=== PATIENT | male | born 1960 | race African-American/Black ===

== ENCOUNTER 2024-03-12 09:24 | Outpatient (AMB) | payer BC, SELFPAY ==
--- NOTE | 2024-03-12 09:24 | MHC.OFFVIS ---
Vital Signs 03/12/24 09:27 Height 5 ft 6 in Weight 213 lb BMI 34.4 BP 129/84 Blood Pressure Location Rt brachial Position Sitting Pulse 94 Pulse Source Pulse Oximeter Pulse Oximetry (%) 98 Oxygen Delivery Method Room Air Intake Visit Reasons: Hip Pain Intake Note: Pain today 5/10 Allergies No Known Allergies Allergy (Verified 03/12/24 07:57) HPI HPI Hip Pain: Details: Patient is a 63 years old male with prior history of chronic back pain, cervical disc disorder with radiculopathy s/p ACDF (03/2023 at [facility]), h/o abdominal hernia repair (2008), knee pain, morbid obesity, presents today with left hip. Denies any recent trauma, injury or falls. 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 Patient has history of left sciatica in the past and reports his left lower leg with numbness. He also reports right knee, left ankle and low back pain which he attributes to heavy manual work. Reports previous cervical spine surgery and back injections at [facility]. Patient reports he recently completed hip and knee xrays at [facility] [place]. No imaging is available for review today. Pain affects his daily activities and functioning, work, sleep, mobility and social interactions. Denies any fever, chills, abdominal or groin, bladder or bowel dysfunction or saddle anesthesia. Reports chronic left lower leg weakness. Location: Left hip, left ankle, right knee, lower back Duration: Chronic pain >1 year Characteristics of symptom or complaint: Aching, throbbing, burning, hurting, sore, heavy, dull, radiating Aggravating or associated factors: Walking, weight bearing, climbing stairs, cold weather Relieving factors: Bending, Tylenol, activity modifications, rest Treatment: [facility] Cervical disc disorder with radiculopathy Erectile dysfunction Asthma Obesity Left ankle pain Chronic left hip pain Abdominal hernia Knee pain Hyperlipidemia Surgical History History of fusion of cervical spine (~03/2023) History of cervical discectomy (~03/2023) Review of Systems Const All systems reviewed & are unremarkable except as noted in HPI and below Physical Exam Vital Signs: Last Vital Signs Pulse 94 03/12/24 09:27 BP 129/84 03/12/24 09:27 Pulse Ox 98 03/12/24 09:27 Oxygen Delivery Method Room Air 03/12/24 09:27 BMI result Body Mass Index 34.4 General: Appears afebrile. Alert and oriented. Mood and affect appropriate. Follows and participates in conversation appropriately. Respiratory effort is unlabored. No cough. No nasal discharge. Able to transition from sit to stand unassisted. Ambulates with bilaterally normal heel strike and toe off. General: Yes no CVA tenderness Back/Spine/Pelvis Other: TTP over paraspinals from L4-S1. No midline tenderness to palpation in the thoracic or lumbar spine. Repetitive lumbar flexion and axial rotation reproduces mild-moderate pain. Strength 5/5 right and 3.5 left hip flexion bilaterally. Diminished DTR. GOLDY test reproduces lateral hip but no lower back pain. No groin pain with I/E hip rotations bilaterally. Mild TTP to right GTB. Back: no CVA tenderness Cervical Spine: cervical muscular tenderness, pain with cervical ROM, Cervical spine scars present and No Cervical spine tenderness Thoracic/Lumbar Spine: thoracic and lumbar spine normal to inspection, No Thoracic/lumbar spine scar(s), Lasegue's sign negative, straight leg raise negative bilaterally, pain with thoraco-lumbar ROM, paraspinal muscle tenderness, thoraco-lumbar ROM limited, No thoracic spinal tenderness and lumbar spinal tenderness at L4 and at L5 Pelvis: no buttock tenderness Sacroiliac joints: bilaterally nontender Results Reviewed Results Reviewed: No imaging reports are available for review. Assessment & Plan Assessment & Plan (1) Right knee pain: Code(s): M25.561 - Pain in right knee Category: Medical (2) Right knee pain: Code(s): M25.561 - Pain in right knee Category: Medical (3) Chronic left hip pain: Code(s): M25.552 - Pain in left hip; G89.29 - Other chronic pain Category: Medical (4) Left lumbar radiculopathy: Code(s): M54.16 - Radiculopathy, lumbar region Category: Medical (5) Lumbosacral spondylosis: Code(s): M47.817 - Spondylosis without myelopathy or radiculopathy, lumbosacral region Category: Medical (6) Left ankle pain: Code(s): M25.572 - Pain in left ankle and joints of left foot Category: Medical Plan Recommend formal physical therapy for chronic low back pain, left hip, left ankle and right knee pain. Script provided today for [facility] per patient's request due to its proximity to his home. Obtain full pertinent and past medical records from [facility] and [facility] for most recent imaging and previous procedures and injections. Discussed interventional treatments for current pain generators, including diagnostic versus therapeutic injections, peripheral nerve stimulation, and radiofrequency ablation procedures. Informational pamphlets provided to patient today. Scripts provided for Celebrex and diclofenac gel. Side effects and precautions discussed with patient. All questions and concerns have been answered and patient agreed with the treatment plan. Follow-up in 6-8 weeks to see response to physical therapy, if no response to physical therapy will consider further interventional strategy. Orders: Orders PT Evaluation and Treatment Today G89.29 - Other chronic pain, M25.552 - Pain in left hip, M25.561 - Pain in right knee, M25.572 - Pain in left ankle and joints of left foot, M47.817 - Spondylosis without myelopathy or radiculopathy, lumbosacral region, M54.16 - Radiculopathy, lumbar region Medications: New diclofenac sodium 1% (Arthritis Pain (diclofenac)) apply to single knee, ankle, foot; for foot includes sole/toes/top of foot 4 grams topical QID 100 grams 3RF pain G89.29 - Other chronic pain, M25.552 - Pain in left hip, M25.561 - Pain in right knee celecoxib (Celebrex) Take it with food and full glass of water 200 mg PO BID 30 days PRN 60 caps 0RF pain G89.29 - Other chronic pain, M25.552 - Pain in left hip, M25.561 - Pain in right knee Coding Level of Care Code New Pt Level 4 (77937) Complex EM visit Add On G2211 Diagnoses Right knee pain M25.561 Chronic left hip pain M25.552; G89.29 Left lumbar radiculopathy M54.16 Lumbosacral spondylosis M47.817 Left ankle pain M25.572
[2024-03-12 09:27] VITALS: BP 129/84; PULSE 94; O2SAT 98; BMI 34.4
== END 2024-03-12 10:00 | disposition home or self-care (01) ==
PROVIDERS: PCP Internal Medicine; Visit Provider Nurse Practitioner Family
DX: M25.561 Pain in right knee (principal); M25.552 Pain in left hip; G89.29 Other chronic pain; M54.16 Radiculopathy, lumbar region; M47.817 Spondylosis without myelopathy or radiculopathy, lumbosacral region; M25.572 Pain in left ankle and joints of left foot
CPT/HCPCS: 99204

== ENCOUNTER → 2024-03-12 09:24 | Outpatient (BNVA) | payer BC, SELFPAY | PROVIDERS: PCP Internal Medicine; Visit Provider Nurse Practitioner Family ==